=== PATIENT | female | born 1980 | race Two or more races ===

== ENCOUNTER 2021-03-07 21:29 | Emergency (ER) | payer MEDICAID ==
[~2021-03-07] VITALS: Ht 152.4 cm; Wt 66.0 kg
[2021-03-07 21:47] VITALS: BP 189/109
[2021-03-07] MEDS ORDERED: LIDOCAINE HCL/PF 1% 10 MG/ML 5ML VIAL IJ ONE (22:45)
[2021-03-07] MEDS ORDERED: BACITRACIN ZINC OINT UDPKT TOP ONE (22:45)
[2021-03-07] MEDS ORDERED: ACETAMINOPHEN WITH CODEINE 300/30MG TABLET PO ONE (23:45)
[2021-03-08] MEDS ORDERED: T3 PO (01:37)
== END 2021-03-08 02:24 | disposition home or self-care (01) ==
LOC: ER 21:29
DX: S62.614A Displaced fracture of proximal phalanx of right ring finger, initial encounter for closed fracture (principal); W49.04XA Ring or other jewelry causing external constriction, initial encounter; R03.0 Elevated blood-pressure reading, without diagnosis of hypertension; V28.0XXA Motorcycle driver injured in noncollision transport accident in nontraffic accident, initial encounter; Y93.55 Activity, bike riding; Y92.488 Other paved roadways as the place of occurrence of the external cause
CPT/HCPCS: 20520; 29125; 73130; 81025; 99284; J3490

== ENCOUNTER 2025-09-18 00:11 | Emergency (ER) | payer MEDICAID ==
[~2025-09-18] VITALS: Ht 152.4 cm; Wt 64.0 kg
[~2025-09-18 00:11] MED LIST: T3 PO
[2025-09-18 00:24] VITALS: O2SAT 100
[2025-09-18] MEDS ORDERED: CLIN-194 MT (02:03)
[2025-09-18 02:25] VITALS: BP 202/144; PULSE 67; RESP 17; TEMP 36.7; O2SAT 100
[2025-09-18] MEDS: CLINDAMYCIN HCL 150MG CAPSULE PO ONE (02:30)
== END 2025-09-18 02:30 | disposition home or self-care (01) ==
LOC: ER 00:11
DX: K04.7 Periapical abscess without sinus (principal); I10 Essential (primary) hypertension; Z88.0 Allergy status to penicillin
CPT/HCPCS: 99283